=== PATIENT | male | born 1980 | race Caucasian/White ===

== ENCOUNTER 2017-04-06 18:33 | Emergency (ER) | payer OTHER, MEDICAID ==
[2017-04-06 18:42] VITALS: O2SAT 96
[2017-04-06] MEDS ORDERED: IBUPROFEN 600 MG TAB PO ONE ×2 (18:50)
--- NOTE | 2017-04-06 19:07 | EDPHY ---
H & P Smoking Status: Current every day smoker Time Seen by Provider: 04/06/17 18:44 HPI/ROS: CHIEF COMPLAINT: Left forearm laceration HISTORY OF PRESENT ILLNESS: 36-year-old male presents emergency department with a laceration to his left forearm from a porcelain dish that broke in the kitchen. Patient is [id number], tetanus is up-to-date, he denies numbness or tingling to his arm, he denies other complaints. (Roxane Ellis) Physical Exam: GEN: Awake, alert, oriented, no acute distress RESP: nl resp effort MSK: Full active flexion and extension of left wrist and elbow, 2 point discrimination intact SKIN: 4 cm laceration to dorsal aspect of left forearm (Roxane Ellis) Constitutional: Initial Vital Signs Temperature (C) 36.8 C 04/06/17 18:35 Heart Rate 90 04/06/17 18:35 Respiratory Rate 18 04/06/17 18:35 Blood Pressure 139/89 H 04/06/17 18:35 O2 Sat (%) 96 04/06/17 18:35 O2 Delivery Mode Room Air Allergies/Adverse Reactions: No Known Allergies Allergy (Verified 04/06/17 18:40) Home Medications: Medication Instructions Recorded Ibuprofen 600 mg PO Q8 PRN #20 tablet 04/06/17 MDM/Departure - [facility] Imaging: I viewed and interpreted images myself - [facility] Imaging Results: Imaging Impressions Forearm X-Ray 04/06/17 19:03 Impression: 1. No definite acute fracture. 2. No evidence of radiopaque foreign bodies. Procedures: Procedure: Laceration repair. Verbal consent was obtained from the patient. The 4 cm laceration on the left forearm was anesthetized using 1% lidocaine with epinephrine mixed with 0.5% bupivacaine with epinephrine. The wound was carefully irrigated by the emergency department cath lab radiology technician. Next, the wound was prepped and draped in sterile fashion and explored to its base with a gloved finger. There were no deep structures involved. No tendon injury was identified. No vascular injury was identified. No foreign bodies were identified. The wound was repaired with 5.0 Prolene, 8 simple interrupted sutures. The wound repair was simple. The procedure was performed by myself. Tetanus and antibiotic status were addressed. (Roxane Ellis) Medications Given: Discontinued Medications Ibuprofen (Motrin) 600 mg PO EDNOW ONE Stop: 04/06/17 18:51 Last Admin: 04/06/17 18:50 Dose: 600 mg ED Course/Re-evaluation: The patient was evaluated and managed by the physician's learning support assistant. My cosignature indicates that I reviewed the chart and I agree with the findings and plan of care as documented. I am the secondary supervising physician. ( Tiffanie Thompson) - Depart Disposition: Home, Routine, Self-Care Clinical Impression: Laceration of left forearm Qualifiers: Encounter type: initial encounter Qualified Code(s): S51.812A - Laceration without foreign body of left forearm, initial encounter Condition: Good Instructions: Laceration (ED) Additional Instructions: Return to the emergency department in 12-14 days for suture removal, return sooner for any signs of infection. Stand Alone Forms: Work Comp Follow Up Prescriptions: Ibuprofen 600 mg PO Q8 PRN #20 tablet PRN Reason: Pain, Breakthrough Referrals: NONE *PRIMARY CARE P,. [Primary Care Provider] - As per Instructions
[2017-04-06 20:18] VITALS: BP 113/67; PULSE 80; RESP 16; TEMP 98.1
== END 2017-04-06 20:15 | disposition home or self-care (01) ==
PROC: 0HQEXZZ Repair Left Lower Arm Skin, External Approach (ICD-10-PCS; principal; 2017-04-06)
DX: S51.812A Laceration without foreign body of left forearm, initial encounter (principal); F17.200 Nicotine dependence, unspecified, uncomplicated; W45.8XXA Other foreign body or object entering through skin, initial encounter; Y92.000 Kitchen of unspecified non-institutional (private) residence as the place of occurrence of the external cause